=== PATIENT | female | born 1945 | race Caucasian/White ===

== ENCOUNTER → 2024-05-14 | Outpatient (CLI) | payer MEDICARE, SELFPAY ==
[2024-05-14 14:22] LABS: Anion Gap 8 (7-16); BUN/Creatinine Ratio 14 Ratio (12-20); Blood Urea Nitrogen 11 mg/dL (9-23); Calcium 9.9 mg/dL (8.3-10.6); Carbon Dioxide 28.1 mMol/L (20.0-31.0); Chloride 108 mMol/L (98-107); Creatinine (Component) 0.8 mg/dL (0.6-1.3); Glucose 80 mg/dL (74-106); Osmolality,Calculated 285 (275-295); Potassium 4.8 mMol/L (3.4-5.1); Sodium 144 mMol/L (136-145); eGFR > 60 See Note
== END | disposition home or self-care (01) ==
LOC: COPL 12:54
PROVIDERS: PCP Family Medicine; Referring Provider Family Medicine; Visit Provider Family Medicine
DX: N20.0 Calculus of kidney (principal)
CPT/HCPCS: 36415; 80048

== ENCOUNTER → 2024-05-19 | Outpatient (CLI) | payer MEDICARE, SELFPAY ==
--- NOTE | 2024-05-19 08:45 | XR_ITS ---
Examination: Breast ultrasound, unilateral, left complete Date and time of exam: May 19, 2024 1002 hours INDICATIONS: Mammogram May 07, 2023 focal asymmetry upper outer breast, 10:00 nodule 27 mm on left breast sonogram November 17, 2023 Technique: Real-time aaron scale ultrasonographic imaging performed left breast including all 4 quadrants as well as nipple retroareolar and axillary region. Findings: 2:00 oval mass versus glandular tissue 23 x 8 x 24 mm IMPRESSION: BI-RADS Category 3: Probably benign findings Recommend 1 additional 6 month left breast sonogram follow-up to document stability of probably benign glandular tissue above
== END | disposition home or self-care (01) ==
LOC: CDIM 09:52
PROVIDERS: PCP Family Medicine; Referring Provider Family Medicine; Visit Provider Family Medicine
DX: R92.332 Mammographic heterogeneous density, left breast (principal); R92.8 Other abnormal and inconclusive findings on diagnostic imaging of breast
CPT/HCPCS: 76641

== ENCOUNTER → 2024-10-14 | Outpatient (BNVA) | payer MEDICARE, SELFPAY | END | disposition home or self-care (01) | PROVIDERS: PCP Family Medicine; Referring Provider Family Medicine; Visit Provider Urology | DX: R35.0 Frequency of micturition (principal); M54.9 Dorsalgia, unspecified; Z87.440 Personal history of urinary (tract) infections; Z87.442 Personal history of urinary calculi; M19.90 Unspecified osteoarthritis, unspecified site; M79.7 Fibromyalgia; K58.9 Irritable bowel syndrome, unspecified | CPT/HCPCS: 81003; 99212; G0463 ==

== ENCOUNTER → 2024-11-10 | Outpatient (CLI) | payer MEDICARE, MEDICAID, SELFPAY ==
--- NOTE | 2024-11-10 14:03 | XR_ITS ---
Examination: Breast ultrasound, unilateral, left complete Date and time of exam: November 10, 2024 1411 hours INDICATIONS: Left breast sonogram May 19, 2024 2:00 nodule versus glandular tissue 23 x 24 mm, left mammogram May 07, 2023 focal asymmetry upper outer left breast Technique: Real-time aaron scale ultrasonographic imaging performed left breast including all 4 quadrants as well as nipple retroareolar and axillary region. Findings: 2:00 glandular tissue 21 x 26 mm IMPRESSION: BI-RADS Category 3: Probably benign findings Recommend 1 additional 6 month left breast sonogram follow-up to document stability of 2:00 probably benign glandular tissue left breast
== END | disposition home or self-care (01) ==
PROVIDERS: PCP Family Medicine; Referring Provider Family Medicine; Visit Provider Family Medicine
DX: R92.2 Inconclusive mammogram (principal)
CPT/HCPCS: 76641

== ENCOUNTER → 2024-12-22 | Outpatient (CLI) | payer MEDICARE, MEDICAID, SELFPAY ==
--- NOTE | 2024-12-22 09:00 | XR_ITS ---
Examination: CT abdomen and pelvis without contrast. Coronal 3-D reconstructions. Sagittal 2-D reconstructions. Date and time of exam:December 22, 2024, 0856 hours INDICATIONS: Left upper abdominal pain months, diagnosis hydronephrosis unspecified CTDI: vol (mGy): 8.77 DLP: (mGycm): 174 Technique: Axial images of the abdomen have been obtained, 3 mm slice thickness Intravenous contrast material has not been administered. Low dose protocols were performed. One or more of the following dose reduction techniques were used; automated exposure control, adjustment of the mA and/or KV according to patient size, use of iterative reconstruction technique. Findings: Abnormal intrahepatic biliary tract dilatation Abnormal enlargement common hepatic duct 21 mm common bile duct 15 mm No definite stones in the common duct No pancreatic mass depicted No dilated pancreatic duct Moderate to advanced left hydronephrosis secondary to 9 mm distal left ureteral calculus No bowel obstruction No pericecal inflammatory change Colonic diverticulosis Absent uterus Contracted urinary bladder Transpedicular lumbar fusion L3-L5 centered about the compressed L4 vertebral body Chronic compressions also L1, T12 IMPRESSION: Markedly abnormal extra hepatic biliary tract dilatation Recommend MRCP follow-up to exclude malignant stricture or stones obstructing the common bile duct Moderate to advanced left hydronephrosis, 9 mm distal left ureteral calculus
== END | disposition home or self-care (01) ==
PROVIDERS: Referring Provider Urology; Visit Provider Urology
DX: K83.8 Other specified diseases of biliary tract (principal); N13.30 Unspecified hydronephrosis; N20.1 Calculus of ureter
CPT/HCPCS: 74176

== ENCOUNTER → 2025-01-07 | Outpatient (BNVA) | payer MEDICARE, MEDICAID, SELFPAY | END | disposition home or self-care (01) | PROVIDERS: PCP Family Medicine; Referring Provider Family Medicine; Visit Provider Urology | DX: N13.2 Hydronephrosis with renal and ureteral calculous obstruction (principal); R60.0 Localized edema | CPT/HCPCS: 81003; 99212; G0463 ==

== ENCOUNTER → 2025-01-12 | Outpatient (CLI) | payer MEDICARE, MEDICAID, SELFPAY ==
[2025-01-12 09:58] LABS: Collection Type, Urine Clean Catch
--- NOTE | 2025-01-12 10:14 | EKG_ITS ---
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
[2025-01-12 10:29] LABS: Basophils # (Auto) 0.0 Thou/mm3 (0.0-0.2); Basophils % (Auto) 1 % (0-2.5); Eosinophils # (Auto) 0.2 Thou/mm3 (0.0-0.5); Eosinophils % (Auto) 3 % (0-10); Hematocrit 37.3 % (36.0-46.0); Hemoglobin 11.9 g/dL (12.0-16.0); Immature Granulocytes Auto 0.01 Thou/mm3 (0.00-0.00); Lymphocytes # (Auto) 1.2 Thou/mm3 (1.0-4.8); Lymphocytes % (Auto) 20 % (10-50); Mean Corpuscular HGB Conc 31.9 g/dl (31.0-37.0); Mean Corpuscular Hemoglobin 30.7 pg (25.0-35.0); Mean Corpuscular Volume 96 fL (80-100); Monocytes # (Auto) 0.5 Thou/mm3 (0.0-0.8); Monocytes % (Auto) 8 % (0-12); Neutrophils # (Auto) 4.0 Thou/mm3 (1.8-7.7); Neutrophils % (Auto) 69 % (37-80); Nucleated Red Blood Cell # 0.00 Thou/mm3 (0.00-0.00); Nucleated Red Blood Cell % 0 /100 WBC (0); Platelet Count 222 Thou/mm3 (140-440); RDW Standard Deviation 50.3 fL (36.4-46.3); Red Blood Count 3.87 Miln/mm3 (4.00-5.20); White Blood Count 5.8 Thou/mm3 (3.6-11.0)
[2025-01-12 10:36] LABS: INR 1.0 (0.9-1.3); Prothrombin Time 10.7 Seconds (9.0-12.2)
[2025-01-12 10:45] LABS: Alanine Aminotransferase < 7 U/L (10-49); Albumin, Serum 4.4 gm/dL (3.4-4.8); Albumin/Globulin Ratio 1.8 (1.2-2.2); Alkaline Phosphatase 59 U/L (46-116); Anion Gap 9 (7-16); Aspartate Amino Transferase 20 U/L (0-34); BUN/Creatinine Ratio 7 Ratio (12-20); Bilirubin,Total 0.5 mg/dL (0.3-1.2); Blood Urea Nitrogen 8 mg/dL (9-23); Calcium 10.4 mg/dL (8.3-10.6); Calcium (Corrected) 10.4 mg/dL (8.5-10.1); Carbon Dioxide 26.4 mMol/L (20.0-31.0); Chloride 107 mMol/L (98-107); Creatinine (Component) 1.1 mg/dL (0.6-1.3); Globulin 2.4 gm/dL (2.3-3.5); Glucose 90 mg/dL (74-106); Osmolality,Calculated 281 (275-295); Potassium 3.7 mMol/L (3.4-5.1); Sodium 142 mMol/L (136-145); Total Protein 6.8 gm/dL (5.7-8.2); eGFR 51 See Note
[2025-01-12 10:48] LABS: Bacteria,Urine 1+; Bilirubin,Urine Negative (Negative); Blood,Urine 1+ (Negative); Calcium Oxalate Crystals,Urine Rare; Color,Urine Yellow (Lt Yel-Yel); Glucose, Urine Negative (Negative); Ketones,Urine Negative (Negative); Leukocyte Esterase,Urine Positive (Negative); Nitrite,Urine Negative (Negative); PH,Urine 6.0 (5.0-7.0); Protein,Urine Trace (Neg - Trace); RBC,Urine 24 /hpf (0-3); Specific Gravity,Urine 1.014 (1.001-1.035); Squamous Epithelial Cell,Urine 92 /hpf (0-5); Urobilinogen,Urine Negative mg/dL (0.0-1.0); WBC,Urine 911 /hpf (0-5)
[2025-01-12 11:08] LABS: Clarity,Urine Turbid (Clear/Hazy)
== END | disposition home or self-care (01) ==
LOC: COPL 09:33
PROVIDERS: PCP Family Medicine; Referring Provider Family Medicine; Visit Provider Family Medicine
DX: Z01.818 Encounter for other preprocedural examination (principal)
CPT/HCPCS: 36415; 80053; 81001; 85025; 85610; 93005

== ENCOUNTER 2025-01-19 13:27 | Observation (INO) | payer MEDICARE, SELFPAY ==
[2025-01-18 13:03] VITALS: BMI 24.0
[2025-01-19] VITALS (13 sets, daily range): BP systolic 121–163; BP diastolic 67–92; PULSE 65–79; RESP 12–20; TEMP 36.1–36.8; O2SAT 95–100; BMI 24.0
--- NOTE | 2025-01-19 10:30 | XR_ITS ---
EXAMINATION: Retrograde pyelogram left with without KUB Fluoroscopy 4 spot fluoroscopic abdomen films Date and time: January,, 11 3 9 hours INDICATIONS: Left flank pain, moderate to advanced left hydronephrosis 9 mm distal left ureteral calculus on CT stone study 12/22/2024, ureteral stone manipulation and attempted stent placement today TECHNIQUE AND FINDINGS: 4 spot fluoroscopic abdomen films Visualization wire guide No opacification of the renal collecting system Fluoroscopy 178.6 seconds radiation dose 29.29 mGy IMPRESSION: Retrograde pyelogram as above
--- NOTE | 2025-01-19 13:15 | SUR.PHASEI ---
pt received from OR in recovery bay 5. pt asleep but responds to voice, breathing unlabored on oxymask 8l. v/s stable. report received from Edwar SARABIA and Martha LIMON.
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
--- NOTE | 2025-01-19 13:35 | ESHP_ITS ---
<Statement entered by Dallin Fabian MD - 01/19/25 18:27> Patient seen and assessed status post elective cystoscopy, ureteroscopy, lithotripsy and attempt at ureteral stent placement with Dr. Fitch (urology). Patient is an 79-year-old female with past medical history of neck fusion status post surgery, diverticulosis, hysterectomy. Urology is requesting admission for observation and IR guided nephrostomy tube placement on 01/20. Patient remains clinically stable; moreover, we will continue observing and monitoring for any acute changes. Expect discharge within the next 24 to 48 hours after completion of nephrostomy tube placement. I have personally seen and examined the patient. I agree with the resident's assessment and plan as documented below. Dallin Fabian DO PGY-2 Internal Medicine - GME Documentation for date of: 01/19/25 HPI History of Present Illness History of present illness: 79-year-old female with medical history of left-sided ureteral stone, which was diagnosed one year ago, irritable bowel syndrome, diverticulosis, fibromyalgia, osteoarthritis, migraine headaches, PTSD, and sciatica-attributed backache. She also has a history of C4, C5-C7 fusion. Seen and assessed status post elective cystoscopy, ureteroscopy, lithotripsy and attempt at ureteral stent placement with Dr. Fitch (urology). Past medical history: As stated above. Past surgical history: Neck fusion status post surgery. Hysterectomy. Allergies: adhesive tape (blister), codeine (vomiting) Medications: see med list Family history: Noncontributory. Social history: No alcohol use, no smoking, no illicit drug use. Patient admitted for observation and IR guided nephrostomy tube placement on 01/20 Review of Systems Review of Systems Narrative Review of Systems: All systems reviewed negative unless stated otherwise above. Exam Vital Signs Temp Pulse Resp BP Pulse Ox O2 Flow Rate 97.7 F 72 14 163/92 H 100 8 01/19/25 13:15 01/19/25 13:15 01/19/25 13:15 01/19/25 13:15 01/19/25 13:15 01/19/25 13:15 Narrative Exam General: A/O x3, no acute distress, laying comfortably in bed, conversing well Eyes: PERRLA, EOMI. Anicteric. Ears: No ear pain, no ear discharge, hearing grossly intact. Nose: No nasal discharge. Mouth/Throat: Moist mucous membranes, no redness, no lesions. Neck: Neck supple, non-tender, no cervical lymphadenopathy. Lungs: Good air entry bilaterally. No accessory muscle use. No crackles or adventitious sounds. Cardio: Normal S1/S2, regular rhythm, no murmurs, no JVD Abdomen: Soft, no distention, nontender, no guarding or rebound. Extremities: Symmetrical, no significant deformities, no peripheral edema, non- tender Skin: No rashes, no lesions, warm to touch. Neuro: No focal neurologic deficits, moving all 4 limbs well. Psych: Cooperative, no flight of ideas Results: Labs 01/20/25 05:27 01/20/25 05:27 Quality Measures Quality Measures none Advance care planning discussed with:: patient Medications Home Medications and Allergies Home Medications ?Medication ?Instructions ?Recorded ?Confirmed ?Type alprazolam 0.5 mg tablet 0.5 mg PO HS 10/14/24 History Allergies Allergy/AdvReac Type Severity Reaction Status Date / Time adhesive tape Allergy Blister Verified 01/19/25 15:16 codeine Allergy Vomiting Verified 01/18/25 13:01 Visit Medications Acetaminophen (Acetaminophen 325 Mg Tablet) 650 mg PO Q6H PRN PRN Reason: PAIN SCALE 1-3 (mild Stop: 02/18/25 14:27 Hydrocodone Bitart/Acetaminophen (Hydrocodone/Apap 5/325 Tablet) 1 tab PO Q4HR PRN PRN Reason: PAIN SCALE 4-6 (Moderate Stop: 01/24/25 14:27 Enoxaparin Sodium (Enoxaparin Sod Inj 40 Mg/0.4 Ml Syringe) 40 mg SC QDAY MILAN Stop: 02/03/25 08:59 Fentanyl Citrate (Fentanyl Cit Inj 50 Mcg/Ml Amp 2ml) 25 mcg IVP Q5M PRN; Protocol PRN Reason: PAIN SCALE 7-10 (Severe Stop: 01/19/25 14:27 Fentanyl Citrate (Fentanyl Cit Inj 50 Mcg/Ml Amp 2ml) 25 mcg IVP Q5M PRN; Protocol PRN Reason: PAIN SCALE 4-6 (Moderate Stop: 01/19/25 14:27 Fentanyl Citrate (Fentanyl Cit Inj 50 Mcg/Ml Amp 2ml) 25 mcg IVP Q5M PRN; Protocol PRN Reason: PAIN SCALE 1-3 (mild Stop: 01/19/25 14:28 Lactated Ringer's (Lactated Ringers) 1,000 mls @ 20 mls/hr IV .Q24H ONE Stop: 01/20/25 05:59 Morphine Sulfate (Morphine Sulf Inj 4 Mg/Ml Vial) 2 mg IVP Q2H PRN PRN Reason: PAIN SCALE 7-10 (Severe Stop: 01/24/25 14:27 Discontinued Medications Gentamicin Sulfate/Sodium Chloride (Gentamicin/Ns 80 Mg Ivpb) 80 mg in 50 mls @ 100 mls/hr IV Q30M NR Stop: 01/18/25 06:59 Vancomycin/Sodium Chloride (Vancomycin/Ns 1 Gm Ivpb) 200 mls @ 120 mls/hr IV X1 ONE Stop: 01/19/25 07:39 Gentamicin Sulfate 160 mg/ (Sodium Chloride) 104 mls @ 100 mls/hr IV X1 ONE Stop: 01/19/25 07:02 Ondansetron HCl (Ondansetron Inj 2 Mg/Ml Inj 2 Ml) 4 mg IVP X1 ONE Stop: 01/19/25 12:28 Assessment & Plan Plan 79-year-old female with medical history of left-sided ureteral stone, which was diagnosed one year ago, irritable bowel syndrome, diverticulosis, fibromyalgia, osteoarthritis, migraine headaches, PTSD, and sciatica-attributed backache. She also has a history of C4, C5-C7 fusion. Seen and assessed status post elective cystoscopy, ureteroscopy, lithotripsy and ureteral stent placement with Dr. Fitch (urology). Patient admitted for observation and IR guided nephrostomy tube placement on 01/20. #Left distal ureter with obstruction #High-grade hydroureteronephrosis #Status post cystoscopy Status post cystoscopy, ureteroscopy, lithotripsy and unsuccessfult ureteral stent placement 01/19 Impacted stone left distal ureter 9 mm with obstruction high-grade hydronephrosis, rectocele large bladder diverticulum Plan - IR guided nephrostomy tube placement on 01/20 - NPO from midnight - [place] 10/325mg PO q4h PRN for mod pain (4-6) - Morphine 2mg IV q2h PRN for severe pain (7-10) Health Maintenance: Diet: renal, NPO after midnight GI prophylaxis: none DVT prophylaxis: no chemical ppx as undergoing procedure tomorrow Antibiotics: none CODE STATUS: FULL Disposition: [facility]Sur Case discussed with my attending Dr. Florian , and senior resident, Dr. Caren Marin MD PGY-1 Attending Provider Attestation/Addendum I attest that I was physically present for the evaluation, physical examination, lab and imaging review of the patient with the residents. I discussed the case with the residents and agree with the findings and plans of care as documented above. After examination of the patient and review of the clinical data I feel that this patient needs admission to the hospital for further treatment/evaluation. Erika Florian MD
--- NOTE | 2025-01-19 14:42 | SUR.PHASEII ---
pt awake and alert, breathing unlabored on room air. v/s stable. pt has morse cath in place. report called to Javed SARABIA. pt will be transferred to room at this time.
[2025-01-19] MEDS: HYDROcodone/APAP 5/325 TABLET 1 TAB PO (15:23)
[2025-01-19 16:39] LABS: Basophils # (Auto) 0.0 Thou/mm3 (0.0-0.2); Basophils % (Auto) 0 % (0-2.5); Eosinophils # (Auto) 0.0 Thou/mm3 (0.0-0.5); Eosinophils % (Auto) 0 % (0-10); Hematocrit 40.3 % (36.0-46.0); Hemoglobin 13.1 g/dL (12.0-16.0); Immature Granulocytes Auto 0.04 Thou/mm3 (0.00-0.00); Lymphocytes # (Auto) 0.6 Thou/mm3 (1.0-4.8); Lymphocytes % (Auto) 6 % (10-50); Mean Corpuscular HGB Conc 32.5 g/dl (31.0-37.0); Mean Corpuscular Hemoglobin 30.5 pg (25.0-35.0); Mean Corpuscular Volume 94 fL (80-100); Monocytes # (Auto) 0.2 Thou/mm3 (0.0-0.8); Monocytes % (Auto) 1 % (0-12); Neutrophils # (Auto) 10.3 Thou/mm3 (1.8-7.7); Neutrophils % (Auto) 92 % (37-80); Nucleated Red Blood Cell # 0.00 Thou/mm3 (0.00-0.00); Nucleated Red Blood Cell % 0 /100 WBC (0); Platelet Count 218 Thou/mm3 (140-440); RDW Standard Deviation 47.1 fL (36.4-46.3); Red Blood Count 4.29 Miln/mm3 (4.00-5.20); White Blood Count 11.1 Thou/mm3 (3.6-11.0)
[2025-01-19 17:08] LABS: Alanine Aminotransferase < 7 U/L (10-49); Albumin, Serum 4.2 gm/dL (3.4-4.8); Albumin/Globulin Ratio 1.8 (1.2-2.2); Alkaline Phosphatase 56 U/L (46-116); Anion Gap 11 (7-16); Aspartate Amino Transferase 16 U/L (0-34); BUN/Creatinine Ratio 7 Ratio (12-20); Bilirubin,Total 0.5 mg/dL (0.3-1.2); Blood Urea Nitrogen 7 mg/dL (9-23); Calcium 9.8 mg/dL (8.3-10.6); Calcium (Corrected) 9.8 mg/dL (8.5-10.1); Carbon Dioxide 26.1 mMol/L (20.0-31.0); Chloride 109 mMol/L (98-107); Creatinine (Component) 1.0 mg/dL (0.6-1.3); Estimated Creatinine Clearance 37.1 mL/min (>60); Globulin 2.3 gm/dL (2.3-3.5); Glucose 140 mg/dL (74-106); Magnesium 2.0 mg/dL (1.6-2.6); Osmolality,Calculated 290 (275-295); Phosphorous 2.6 mg/dL (2.4-5.1); Potassium 3.6 mMol/L (3.4-5.1); Sodium 146 mMol/L (136-145); Total Protein 6.5 gm/dL (5.7-8.2); eGFR 57 See Note
--- NOTE | 2025-01-19 19:02 | PC.NURSE ---
Per Javed SARABIA gentamicin IV was already given in OR.
[2025-01-20] VITALS (10 sets, daily range): BP systolic 120–172; BP diastolic 58–98; PULSE 60–88; RESP 17–20; TEMP 36.2–36.6; O2SAT 95–100
[2025-01-20 05:44] LABS: Basophils # (Auto) 0.0 Thou/mm3 (0.0-0.2); Basophils % (Auto) 0 % (0-2.5); Eosinophils # (Auto) 0.0 Thou/mm3 (0.0-0.5); Eosinophils % (Auto) 0 % (0-10); Hematocrit 37.6 % (36.0-46.0); Hemoglobin 12.5 g/dL (12.0-16.0); Immature Granulocytes Auto 0.04 Thou/mm3 (0.00-0.00); Lymphocytes # (Auto) 1.0 Thou/mm3 (1.0-4.8); Lymphocytes % (Auto) 9 % (10-50); Mean Corpuscular HGB Conc 33.2 g/dl (31.0-37.0); Mean Corpuscular Hemoglobin 31.1 pg (25.0-35.0); Mean Corpuscular Volume 94 fL (80-100); Monocytes # (Auto) 0.7 Thou/mm3 (0.0-0.8); Monocytes % (Auto) 6 % (0-12); Neutrophils # (Auto) 9.9 Thou/mm3 (1.8-7.7); Neutrophils % (Auto) 85 % (37-80); Nucleated Red Blood Cell # 0.00 Thou/mm3 (0.00-0.00); Nucleated Red Blood Cell % 0 /100 WBC (0); Platelet Count 220 Thou/mm3 (140-440); RDW Standard Deviation 46.5 fL (36.4-46.3); Red Blood Count 4.02 Miln/mm3 (4.00-5.20); White Blood Count 11.6 Thou/mm3 (3.6-11.0)
[2025-01-20 06:03] LABS: INR 1.0 (0.9-1.3); Prothrombin Time 10.7 Seconds (9.0-12.2)
[2025-01-20 06:16] LABS: Alanine Aminotransferase < 7 U/L (10-49); Albumin, Serum 4.0 gm/dL (3.4-4.8); Albumin/Globulin Ratio 1.9 (1.2-2.2); Alkaline Phosphatase 48 U/L (46-116); Anion Gap 13 (7-16); Aspartate Amino Transferase 12 U/L (0-34); BUN/Creatinine Ratio 9 Ratio (12-20); Bilirubin,Total 0.7 mg/dL (0.3-1.2); Blood Urea Nitrogen 10 mg/dL (9-23); Calcium 9.8 mg/dL (8.3-10.6); Calcium (Corrected) 9.8 mg/dL (8.5-10.1); Carbon Dioxide 25.5 mMol/L (20.0-31.0); Cardiac Risk Estimate 2.3 RATIO (3.7-5.6); Chloride 105 mMol/L (98-107); Cholesterol 155 mg/dL (132-200); Creatinine (Component) 1.1 mg/dL (0.6-1.3); Estimated Creatinine Clearance 33.7 mL/min (>60); Globulin 2.1 gm/dL (2.3-3.5); Glucose 111 mg/dL (74-106); HDL Cholesterol 66 mg/dL (40-60); LDL Cholesterol,Calculated 73 mg/dL (0-130); Magnesium 2.1 mg/dL (1.6-2.6); Osmolality,Calculated 284 (275-295); Phosphorous 3.2 mg/dL (2.4-5.1); Potassium 4.0 mMol/L (3.4-5.1); Sodium 143 mMol/L (136-145); Thyroid Stimulating Hormone 0.50 uIU/mL (0.55-4.78); Total Protein 6.1 gm/dL (5.7-8.2); Triglycerides 81 mg/dL (30-150); eGFR 51 See Note
--- NOTE | 2025-01-20 07:51 | XR_ITS ---
EXAMINATION: Left percutaneous nephrostomy drainage catheter placement Fluoroscopy AP abdomen single view Ultrasound-guided renal access left renal collecting system Left nephrostogram Date and time: January 20, 2025, 0915 hours INDICATIONS: Left hydronephrosis secondary to 9 mm distal left ureteral calculus, unsuccessful stent placement yesterday TECHNIQUE AND FINDINGS: Informed consent provided. Timeout performed. Skin prepped over the left flank and sterile drape applied, maximum barrier sterile technique and hygiene ultrasound sterile technique 1% lidocaine administered for local anesthesia Utilizing ultrasonographic guidance, successful localization of dilated left renal collecting system Utilizing ultrasonographic guidance successful 21-gauge needle puncture into the left renal collecting system 0.18 wire guide introduced through the needle followed by 5 Japanese catheter, 0.35 wire guide, dilators and finally a 10 Japanese 25 cm percutaneous nephrostomy tube. Hand injection 15 cc Cystografin demonstrates satisfactory position of the nephrostomy drainage catheter Estimated blood loss 2 cc Patient in stable condition on completion procedure Fluoroscopy 0.9-minute radiation dose 9.06 mGy 2 spot abdomen films Impression: Successful percutaneous nephrostomy drainage catheter placement, left Left nephrostograms demonstrate satisfactory position of the drainage catheter
[2025-01-20 08:38] LABS: Free T4 (Free Thyroxine) 1.50 ng/dL (0.89-1.76)
[2025-01-20 08:44] LABS: Partial Thromboplastin Time 25.0 Seconds (22.0-36.0)
--- NOTE | 2025-01-20 09:17 | XR_ITS ---
EXAMINATION: Ultrasound localization right kidney Exam date and time: January 20, 2025, 0955 hours INDICATIONS: Right flank pain right hydronephrosis secondary to obstructing ureteral calculus, preop nephrostomy, need for ultrasound guided localization of the right kidney hydronephrosis FINDINGS: Sonographic images obtained of right hydronephrosis IMPRESSION: Ultrasound-guided localization of right kidney
[2025-01-20] MEDS: fentaNYL CIT INJ 50 mCg/ML AMP 2ML 100 MCG IVP (10:27)
[2025-01-20] MEDS: LIDOCAINE INJ PF 1% 30 ML VIAL 8 ML EPID (10:28)
--- NOTE | 2025-01-20 11:57 | PD.RESPRO ---
Documentation for date of: 01/20/25 Exam Vital Signs Temp Pulse Resp BP Pulse Ox O2 Del Method O2 Flow Rate 97.4 F 79 18 172/85 H 100 Nasal Cannula 3 01/20/25 07:39 01/20/25 10:35 01/20/25 10:35 01/20/25 10:35 01/20/25 10:35 01/20/25 10:35 01/20/25 10:35 Objective Labs 01/20/25 05:27 01/20/25 05:27 Labs: Laboratory Results - last 24 hr 01/19/25 01/20/25 01/20/25 16:28 05:27 07:00 WBC 11.1 H 11.6 H RBC 4.29 4.02 Hgb 13.1 12.5 Hct 40.3 37.6 MCV 94 94 MCH 30.5 31.1 MCHC 32.5 33.2 RDW Std Deviation 47.1 H 46.5 H Plt Count 218 220 Neut % (Auto) 92 H 85 H Lymph % (Auto) 6 L 9 L Norman % (Auto) 1 6 Eos % (Auto) 0 0 Baso % (Auto) 0 0 Neut # (Auto) 10.3 H 9.9 H Lymph # (Auto) 0.6 L 1.0 Norman # (Auto) 0.2 0.7 Eos # (Auto) 0.0 0.0 Baso # (Auto) 0.0 0.0 Immature Gran # (Auto) 0.04 H 0.04 H Absolute Nucleated RBC 0.00 0.00 Immature Gran % 0 0 Nucleated RBC % 0 0 PT 10.7 INR 1.0 APTT 25.0 Sodium 146 H 143 Potassium 3.6 4.0 Chloride 109 H 105 Carbon Dioxide 26.1 25.5 Anion Gap 11 13 BUN 7 L 10 Creatinine 1.0 1.1 Estim Creat Clear Calc 37.1 L 33.7 L eGFR 57 L 51 L BUN/Creatinine Ratio 7 L 9 L Glucose 140 H 111 H Calculated Osmolality 290 284 Calcium 9.8 9.8 Corrected Calcium 9.8 9.8 Phosphorus 2.6 3.2 Magnesium 2.0 2.1 Total Bilirubin 0.5 0.7 AST 16 12 ALT < 7 L < 7 L Alkaline Phosphatase 56 48 Total Protein 6.5 6.1 Albumin 4.2 4.0 Globulin 2.3 2.1 L Albumin/Globulin Ratio 1.8 1.9 Triglycerides 81 Cholesterol 155 LDL Cholesterol, Calc 73 HDL Cholesterol 66 H Cholesterol/HDL Ratio 2.3 L TSH 0.50 L Free T4 1.50 Quality Measures Quality Measures none Assessment & Plan Assessment Current Active Medications: Generic Name Dose Route Start Last Admin Trade Name Freq PRN Reason Stop Dose Admin Acetaminophen 650 mg 01/19/25 14:28 Acetaminophen 325 Mg Tablet PO 02/18/25 14:27 Q6H PRN PAIN SCALE 1-3 (mild Hydrocodone Bitart/Acetaminophen 1 tab 01/19/25 18:28 01/20/25 11:51 Hydrocodone/Apap 10/325 Tab PO 01/24/25 18:27 1 tab Q4HR PRN Administration PAIN SCALE 4-6 (Moderate Hydralazine HCl 10 mg 01/19/25 15:58 Hydralazine Hcl 10 Mg Tablet PO 02/18/25 15:59 Q6H PRN hypertension Morphine Sulfate 2 mg 01/19/25 14:28 Morphine Sulf Inj 4 Mg/Ml Vial IVP 01/24/25 14:27 Q2H PRN PAIN SCALE 7-10 (Severe
--- NOTE | 2025-01-20 13:44 | PC.SS ---
Update: IR recommendations pending. Plan is for nephrostomy tube placement.
--- NOTE | 2025-01-20 14:13 | ESDS_ITS ---
Planned Discharge Date 01/20/25 DS: Providers Provider Date of admission: 01/19/25 13:27 Primary care physician: Glenn Hightower MD Admitting Provider: Erika Florian MD Attending Provider on Admission: Erika Florian MD Attending Provider on DC: Erika Florian MD Discharging Provider: Erika Florian MD DS: Diagnosis Problem List Completed Was Problem List Reviewed/Reconciled?: Yes Hospital Course Hospital Course Hospital course: 79-year-old female with medical history of left-sided ureteral stone, which was diagnosed one year ago, irritable bowel syndrome, diverticulosis, fibromyalgia, osteoarthritis, migraine headaches, PTSD, and sciatica-attributed backache. She also has a history of C4, C5-C7 fusion. Patient was admitted to post elective cystoscopy, ureteroscopy, lithotripsy and attempt at ureteral stent placement with Dr. Fitch (urology). Patient admitted for observation and IR guided nephrostomy tube placement on 01/20. Hospital course: Successful Left percutaneous nephrostomy drainage catheter placement performed by IR 01/20. Vital signs and lab results are stable. Discharge instructions: - Please take Manchester 10-325mg tablet every 12 hours as needed for breakthrough pain -Follow-up with Dr. Fitch (Urology) within 1-2 weeks after discharge - Follow-up with your PCP within 1 week of discharge or follow-up at the [address] [place] [address] - If your symptoms worsen or if you develop new chest pain, shortness of breath, dizziness or loss of consciousness - please come back to the ED immediately. #Left distal ureter with obstruction #High-grade hydroureteronephrosis #Status post cystoscopy Case discussed with my attending Dr. Florian, and senior resident, Dr. Caren Marin MD PGY-1 Time Spent with Patient Time attestation: Total time spent providing and/or coordinating discharge services: Time spent: Greater than 30 minutes Quality: VTE Deep Vein Thrombosis/Pulmonary Embolism Present on Admission: No Exam Vital Signs Temp Pulse Resp BP Pulse Ox O2 Del Method O2 Flow Rate 97.4 F 74 17 162/98 H 99 Room Air 3 01/20/25 12:00 01/20/25 12:00 01/20/25 12:00 01/20/25 12:00 01/20/25 12:00 01/20/25 12:00 01/20/25 10:35 Narrative Exam General: A/O x3, no acute distress, laying comfortably in bed, conversing well Eyes: PERRLA, EOMI. Anicteric. Ears: No ear pain, no ear discharge, hearing grossly intact. Nose: No nasal discharge. Mouth/Throat: Moist mucous membranes, no redness, no lesions. Neck: Neck supple, non-tender, no cervical lymphadenopathy. Lungs: Good air entry bilaterally. No accessory muscle use. No crackles or adventitious sounds. Cardio: Normal S1/S2, regular rhythm, no murmurs, no JVD Abdomen: Soft, no distention, nontender, no guarding or rebound. Extremities: Symmetrical, no significant deformities, no peripheral edema, non- tender Skin: No rashes, no lesions, warm to touch. Neuro: No focal neurologic deficits, moving all 4 limbs well. Psych: Cooperative, no flight of ideas Discharge Plan Plan Patient Disposition: HOME (Self Care) Care Plan Goals: Please take Manchester 10-325mg tablet every 12 hours as needed for breakthrough pain Follow-up with Dr. Fitch (Urology) within 1-2 weeks after discharge Follow-up with your PCP within 1 week of discharge or follow-up at the [facility] [address] [place] [address] If your symptoms worsen or if you develop new chest pain, shortness of breath, dizziness or loss of consciousness - please come back to the ED immediately. Prescriptions/Referrals Prescriptions/Med Rec: Continued alprazolam 0.5 mg tablet 0.5 mg PO HS hydrocodone-acetaminophen 10-325 mg tablet 1 tab PO Q12H PRN (Reason: pain) 3 Days Qty: 6 0RF Patient Comments: TAKE 1 TABLET BY MOUTH EVERY 8 HOURS NEEDED FOR PAIN Rx Instructions: status post nephrostomy tube placement Referrals: Glenn Hightower MD [Primary Care Provider, Family Practice] Patient/Caregiver Discharge Instructions Education Materials: Percutaneous Nephrostomy, Preventing Surgical Site Infections Print Language: Bengali Stand Alone Forms: Nanci Award Info., Patient Portal Info Letter, Work/Release Restrictions Discharge Order Discharge Orders: Discharge (Routine); Ordered 01/20/25 Ordered By: Dallin Fabian Quality Discharge Quality Measures none MD Attestestation MD Attestation I attest that I was physically present for the evaluation, physical examination, lab and imaging review of the patient with the residents. I discussed the case with the residents and agree with the findings and plans of care as documented above. Patient is seen and examined at bedside this morning. States that she is in mild pain around left flank but controlled with Manchester. Underwent nephrostomy tube placement with IR today. Vital signs and lab results are stable.Discussed with urology, agreed on patient being stable for discharge. We will discharge patient home on her home medication, recommended to follow-up with PCP and urology in 1 to 2 weeks of discharge. Erika Florian MD
--- NOTE | 2025-01-21 13:40 | PC.SS ---
INDUSTRIAL MAINTENANCE ELECTRICIAN conducted bedside contact with the patient conduct initial assessment and to discuss discharge planning.? Patient confirmed demographic information.? Patient resides at home alone.? Patient is aligned with SS.? Staff person is Kaleb Forman .? Patient utilizes a walker to assist with ambulation.? Patient does not utilize home oxygen.? Patient describes need for assistance to complete ADL?s independently.? Patient identified telecommunications support, Kaleb Forman; as surrogate medical decision maker.? Patient?s PCP is Dr. Hightower.? Patient does not participate with dialysis.? Patient?s urologist is Dr. Fitch. ?Patient utilizes [facility]; for medication services.? Plan is for the patient to return home at the time of discharge.? Friend, Kaleb Forman; will provide transportation on behalf of the patient.? No further discharge needs identified by the patient.? No further intervention required at this time, social media intern will be available to address any further concerns.? Next of Kin: Kaleb Forman D/C Plan: Home
== END 2025-01-20 16:20 | disposition home or self-care (01) ==
LOC: S3NX 01-20 05:50
PROVIDERS: Radiology Diagnostic Radiology; Admitting Provider Student in an Organized Health Care Education/Training Program; PCP Family Medicine; Referring Provider Urology; Visit Provider Student in an Organized Health Care Education/Training Program
PROC: 0TJB8ZZ Inspection of Bladder, Via Natural or Artificial Opening Endoscopic (ICD-10-PCS; CPT 52000; principal; 2025-01-19 10:30)
DX: N13.2 Hydronephrosis with renal and ureteral calculous obstruction (principal); N32.3 Diverticulum of bladder; N81.6 Rectocele; M79.7 Fibromyalgia; M19.90 Unspecified osteoarthritis, unspecified site; K58.9 Irritable bowel syndrome, unspecified
CPT/HCPCS: 52325; 50432; 50684; 36415; 74420; 74425; 76998; 80053; 80061; 82310; 83735; 84100; 84439; 84443; 85025; 85610; 85730; 87077; 87086; 87186; 96374; A4217; A4649; C1729; C1769; C1876; C1889; C1894; G0378; J1100; J1580; J1938; J2405; J2704; J3010; J3490; J7050; Q9958; A9270

== ENCOUNTER 2025-02-10 08:30 | Day surgery (SDC) | payer MEDICARE, SELFPAY ==
[2025-02-09 09:23] VITALS: BMI 23.1
[2025-02-09 11:50] LABS: Alanine Aminotransferase < 7 U/L (10-49); Albumin, Serum 4.6 gm/dL (3.4-4.8); Albumin/Globulin Ratio 2.3 (1.2-2.2); Alkaline Phosphatase 60 U/L (46-116); Anion Gap 14 (7-16); Aspartate Amino Transferase 21 U/L (0-34); BUN/Creatinine Ratio 7 Ratio (12-20); Bilirubin,Total 0.5 mg/dL (0.3-1.2); Blood Urea Nitrogen 8 mg/dL (9-23); Calcium 10.1 mg/dL (8.3-10.6); Calcium (Corrected) 10.1 mg/dL (8.5-10.1); Carbon Dioxide 23.8 mMol/L (20.0-31.0); Chloride 110 mMol/L (98-107); Creatinine (Component) 1.1 mg/dL (0.6-1.3); Estimated Creatinine Clearance 33.7 mL/min (>60); Globulin 2.0 gm/dL (2.3-3.5); Glucose 137 mg/dL (74-106); Osmolality,Calculated 294 (275-295); Potassium 3.2 mMol/L (3.4-5.1); Sodium 148 mMol/L (136-145); Total Protein 6.6 gm/dL (5.7-8.2); eGFR 51 See Note
[2025-02-10] VITALS (10 sets, daily range): BP systolic 134–156; BP diastolic 66–87; PULSE 59–78; RESP 11–20; TEMP 36.3–36.6; O2SAT 98–100; BMI 23.4
--- NOTE | 2025-02-10 09:30 | XR_ITS ---
EXAMINATION: Retrograde pyelogram left with without KUB Fluoroscopy 5 spot fluoroscopic abdomen films Date and time: February 10, 2025, 1252 hours INDICATIONS: Left hydronephrosis secondary to 9 mm distal left ureteral calculus, post nephrostomy tube placement TECHNIQUE AND FINDINGS: 5. Spot fluoroscopic films of the abdomen demonstrate dilated left renal calyces and ureter Percutaneous nephrostomy tube noted Fluoroscopy 82 seconds radiation dose 13.12 mGy IMPRESSION: Retrograde pyelogram as above
--- NOTE | 2025-02-10 13:57 | SUR.PHASEI ---
1336: Pt received in [facility] via [facility]. Report from Edwar SARABIA and Dr. Moseley. Pt groggy, but awake. Resp even, unlabored. VS stable. Denies pain. 1401: Dr. Fitch in to talk with pt. Pt awake, alert. Resp even, unlabored. VS stable. Denies pain.
--- NOTE | 2025-02-10 14:04 | ESOP_ITS ---
RE: JOSE MENDOZA : 1945 DATE OF OPERATION: 02/10/2025 PREPROCEDURE DIAGNOSES: 1 cm impacted midureteral stone, left high-grade hydronephrosis, left percutaneous nephrostomy tube drainage, left. POSTPROCEDURE DIAGNOSIS: Status post treatment of tightly impacted partially ingrown distal ureteral stone, left. PROCEDURE PERFORMED: Fluoroscopic imaging of upper urinary tract; cystoscopy; retrograde pyelogram under fluoroscopic control; antegrade pyelogram left under fluoroscopic control; ureteroscopic surgery with laser stone fragmentation and stone basketing, left; placement of indwelling ureteral stent, left. SURGEON: Pan Valladares MD. HALL MANAGER SURGEON: Kevin Fitch MD. ANESTHESIA: General. INDICATIONS: This patient is an 79-year-old lady who comes for treatment of complex left distal ureteral stone. The patient has a 1 cm stone, which as I understand was watched by different urologists for more than 1 year. She has this stone which has been in place and diagnosed over a year ago with hydroureter, tortuosity of the ureter and compromised renal function. Recently, percutaneous nephrostomy tube was placed. The nephrostomy tube is draining a clear urine. At this point, the referral is for higher-grade subspecialty endourologic management. We discussed with the patient the indication for treatment either in a retrograde fashion or if needed percutaneously antegrade. Appropriate consent is obtained. FINDINGS: Fluoroscopically, the stone shadow was identified in the ureter in the true pelvis. Retrograde pyelogram shows obstruction of the ureter at the level of the stone with minimal contrast above that level. In an antegrade fashion, the kidney is dilated as well as the ureter proximally to the stone. Endoscopically, the patient has a cystocele. She has ureteral diverticulum in the left side of the bladder and after stone manipulation with a safety wire, ureteroscopic surgery is performed. The stone is impacted, embedded, partially ingrown into the ureter so that stone fragmentation and stone removal is technically challenging, but the lumen of the ureter can be restored. Stone material is removed with stone basketing and a stent is placed. The percutaneous nephrostomy tube is closed off. DESCRIPTION OF PROCEDURE: Prior to initiation of anesthesia, the patient was appropriately identified by the surgeon and operating room personnel. The indication for surgery, site, and scope of surgery were reconfirmed with the patient. The patient received preoperative antibiotics intravenously. After induction of general anesthesia, the patient was positioned on the endoscopy table in lithotomy position. The outer genitalia was prepped and draped in a sterile fashion. Cystoscopy was performed using a 21-[place]atorial [place] instrument. This shows a normal bladder mucosa. Both orifices are readily identified and as previously noted an approximately 1.5 cm diverticulum in the left side wall was noted. A 5-Equatorial [place] angiographic catheter was introduced into the left ureteral orifice over a guidewire. The guidewire was removed. Contrast was injected with the aforementioned findings. Guidewires were introduced and using a guidewire with a hydrophilic tip, the stone can be eventually manipulated with advancement of the wire into the proximal ureter. This wire was then followed by the angiographic catheter and injection of contrast confirms the correct position of the angiographic catheter in the ureter. The wire was advanced up into the kidney to serve as a safety wire. At this point, the patient received 20 mg of Lasix intravenously to induce diuresis and reduce the risk of pyelovenous reflux and infectious complications. Next, optical dilation of the ureter was performed using a 9.5-Equatorial [place]ine[place] semi-rigid instrument. This instrument is advanced over a second wire and advanced up into the ureter until visual contact with the stone is made. The stone is tightly impacted in the ureter. There is edema surrounding the stone. With start of laser fragmentation, it is apparent that the stone is impacted, partially embedded into the ureteral wall and as the stone is fragmented, the stone pieces are removed from the wall by using the tip of the laser fiber to move them out of the wall of the ureter. Eventually, the lumen of the ureter can be opened up. All stone material is removed from the stone bed and is then removed using stone basket to clear out all ureteral stone material. At the conclusion of the procedure, contrast was again injected confirming the integrity of the left upper urinary tract and an indwelling stent was placed over the safety wire and under fluoroscopic and endoscopic control, position correcting kidney and bladder. The nephrostomy tube was closed off. The bladder was emptied. The patient was awakened and returned to recovery where she arrived in satisfactory condition. ESTIMATED BLOOD LOSS: Minimal. COMPLICATIONS: None. SPECIMENS: Stone material for chemical analysis. DISPOSITION: The patient will be discharged home from the outpatient surgical area. Plans will be made to bring her back in 3 weeks' time for removal of the ureteral stent and for antegrade pyelogram to be performed to confirm patency of the ureter before the nephrostomy tube eventually will be removed. Also, the patient will undergo a nuclear scan to reassess the function of the left kidney. DT: 13:37:01 TT: 14:02:00 Ref: [id number] - TID: [id number] MTDD
--- NOTE | 2025-02-10 15:24 | SUR.PHASEII ---
1430: Pt more alert. VS stable. Denies pain. Sitting up tolerating po fluids with no difficulty swallowing and no n/v.
--- NOTE | 2025-02-10 15:31 | SUR.PHASEII ---
1425: Pt has been resting with no complaints voiced. VS stable. Denies pain. Pt sitting up tolerating po fluids with no difficulty swallowing and no n/v. 1449: Pt fully awake, oriented x3. Pt stated she needed to void. Pt assisted to restroom. Ambulation steady. 1510: Pt and health care consultant stated understanding of discharge instructions, Pt discharged from [facility] in stable condition.
== END 2025-02-10 15:10 | disposition home or self-care (01) ==
PROVIDERS: Anesthesiology; Specialist; PCP Family Medicine; Referring Provider Urology; Visit Provider Urology
PROC: 0TJB8ZZ Inspection of Bladder, Via Natural or Artificial Opening Endoscopic (ICD-10-PCS; CPT 52000; principal; 2025-02-10 09:30)
DX: N13.2 Hydronephrosis with renal and ureteral calculous obstruction (principal)
CPT/HCPCS: 52356; 36415; 74420; 80053; A4217; A4314; A4649; C1769; C1889; C1894; C2617; J0131; J0461; J1100; J1580; J1885; J1938; J2250; J2405; J2704; J3010; J3490; A4646

== ENCOUNTER → 2025-02-25 | Outpatient (CLI) | payer MEDICARE, SELFPAY ==
--- NOTE | 2025-02-25 08:30 | XR_ITS ---
EXAMINATION: Nuclear medicine kidney function and flow multiple studies Date and time: February 25, 2025, 1017 hours INDICATIONS: Diagnosis unspecified hydronephrosis complex distal left ureteral calculus TECHNIQUE AND FINDINGS: Intravenous administration 10.3 mCi Tc 99m MAG3 Flow and function curves generated to 60 minutes Normal flow right kidney with adequate renal function Significantly reduced flow left kidney, 50% with moderately impaired left renal function IMPRESSION: Moderately impaired left renal function
== END | disposition home or self-care (01) ==
LOC: SNUC 08:04
PROVIDERS: PCP Urology; Referring Provider Urology; Visit Provider Urology
DX: N28.9 Disorder of kidney and ureter, unspecified (principal)
CPT/HCPCS: 78709; A9562

== ENCOUNTER → 2025-03-04 | Outpatient (BNVA) | payer OTHER, SELFPAY | END | disposition home or self-care (01) | PROVIDERS: PCP Urology; Referring Provider Urology; Visit Provider Urology | DX: N13.2 Hydronephrosis with renal and ureteral calculous obstruction (principal); Z96.0 Presence of urogenital implants | CPT/HCPCS: 52310; 96372; A4217; A4649; C1894; J1580; A9270 ==

== ENCOUNTER 2025-03-23 07:15 | Day surgery (SDC) | payer OTHER, SELFPAY ==
[2025-03-22 11:17] VITALS: BMI 22.8
[2025-03-22 13:56] LABS: Albumin, Serum 4.6 gm/dL (3.4-4.8); Albumin/Globulin Ratio 1.8 (1.2-2.2); Alkaline Phosphatase 62 U/L (46-116); Anion Gap 10 (7-16); Aspartate Amino Transferase 19 U/L (0-34); BUN/Creatinine Ratio 10 Ratio (12-20); Bilirubin,Total 0.7 mg/dL (0.3-1.2); Blood Urea Nitrogen 11 mg/dL (9-23); Calcium 10.6 mg/dL (8.3-10.6); Calcium (Corrected) 10.6 mg/dL (8.5-10.1); Carbon Dioxide 28.7 mMol/L (20.0-31.0); Chloride 108 mMol/L (98-107); Creatinine (Component) 1.1 mg/dL (0.6-1.3); Estimated Creatinine Clearance 33.7 mL/min (>60); Globulin 2.6 gm/dL (2.3-3.5); Glucose 102 mg/dL (74-106); Osmolality,Calculated 291 (275-295); Potassium 3.8 mMol/L (3.4-5.1); Sodium 147 mMol/L (136-145); Total Protein 7.2 gm/dL (5.7-8.2); eGFR 51 See Note
[2025-03-22 13:58] LABS: Alanine Aminotransferase < 7 U/L (10-49)
--- NOTE | 2025-03-22 14:44 | SUR.PREOP ---
Pt notified to come in at 729.
[2025-03-23] VITALS (9 sets, daily range): BP systolic 104–154; BP diastolic 67–97; PULSE 69–86; RESP 12–20; TEMP 36.2–36.7; O2SAT 97–100; BMI 22.8
--- NOTE | 2025-03-23 07:35 | CHAP ---
Visited with patient and gave encouragement and prayer before patient's procedure.
[2025-03-23] MEDS: RINGERS LACTATED 1000 ML 1,000 ML 20 ML IV (07:50)
--- NOTE | 2025-03-23 10:05 | XR_ITS ---
EXAMINATION: Retrograde pyelogram left with without KUB AP abdomen single view Fluoroscopy Date and time: October 21, 2024, 1310 hours INDICATIONS: History left hydronephrosis 9 mm distal left ureteral calculus, post nephrostomy tube placement, ureteral stone manipulation TECHNIQUE AND FINDINGS: Single abdomen film obtained visualizing nondilated left renal calyces Fluoroscopy 0.07 seconds radiation dose 0.90 mGy IMPRESSION: Retrograde pyelogram as above
--- NOTE | 2025-03-23 11:24 | PD.SUROPNT ---
Date of Procedure 03/23/25 Pre Op Diagnosis 1 cm stone left distal ureter impacted and embedded in the tissue s/p placement of percutaneous nephrostomy tube which fell off s/p cystoscopy retrograde ureteroscopy laser stone fragmentation stone basketing stent placement which was subsequently removed Post Op Diagnosis Postoperative diagnosis no distal ureteral stricture was identified with no hydronephrosis Procedure Cystoscopic examination left retrograde pyelogram left ureteroscopy under fluoroscopic examination Findings No stone no hydronephrosis no ureteral stricture Procedure Description Indication for procedure this is a 79-year-old female. This patient had impacted embedded 1 cm stone in the distal ureter left side had placement of percutaneous nephrostomy tube. Subsequently she had cystoscopy retrograde ureteroscopy laser stone fragmentation stone basketing and placement of a stent which was subsequently removed in the office. Initially she was scheduled for nephrostogram to make sure the left distal ureter has not stricture because nephrostomy tube fell off she was recommended above procedure instead , to make sure that distal ureter is not strictured in the area of distal ureteral stone procedure and complications were discussed with the patient in great detail informed consent is obtained Patient is brought to the operating room in a satisfactory condition after appropriate premedication was put on the operating table in a spine position she was appropriately identified by surgeon operating room staff site score and indications of the procedure were reconfirmed with the patient. She received perioperative antibiotics. An next general anesthesia was given uneventfully patient was positioned in a dorsal lithotomy position parts were prepped and draped in the usual sterile fashion 21 Yang cystoscope was used to do the cystourethroscopy examination of bladder was carried out in all the quadrants there was no tumors stones diverticuli identified. Both ureteral orifices were easily effluxing clear urine. Next I identified the right ureter and also I found the left ureteral orifice. I passed a open-ended Pollick catheter in the left ureteral orifice retrograde pyelogram was performed there was no hydronephrosis identified. Through the open-ended Pollick catheter I placed a safety wire. Next semirigid ureteroscope was used to do the ureteroscope distal revealed with the area of the stone had healed completely there was no stricture identified no hydronephrosis. Instrument was withdrawn gently patient after having tolerated the procedure well was sent to recovery room in a satisfactory condition to be discharged home she will be followed in my office in 6 months time patient is encouraged to drink plenty of fluids thank you end of dictation Anesthesia GETA Pathology / specimen None Estimated Blood Loss 0.2 Condition Stable Disposition PACU Surgeon Kevin Fitch MD Surgical Staff Operation Date: 03/23/25 09:45 Case Staff Anesthesiologist: Uday Day
--- NOTE | 2025-03-23 11:26 | SUR.PHASEI ---
1126 Patient arrived to recovery resting comfortably in [facility], awake and alert, on oxygen 10L via oxy mask, breathing unlabored, vital signs stable, denies pain and nausea, report received from Edwar SARABIA and Dr. Day
== END 2025-03-23 12:50 | disposition home or self-care (01) ==
PROVIDERS: Anesthesiology; PCP Family Medicine; Referring Provider Urology; Visit Provider Urology
PROC: 0T7B8ZZ Dilation of Bladder, Via Natural or Artificial Opening Endoscopic (ICD-10-PCS; CPT 52356; principal; 2025-03-23 09:30)
DX: N20.1 Calculus of ureter (principal)
CPT/HCPCS: 52356; 36415; 74420; 80053; A4217; A4649; C1769; C1894; J0131; J1100; J1580; J1885; J2250; J2405; J2704; J3010; J3490; J7120